=== PATIENT | male | born 1975 | race Hispanic/Latino ===

== ENCOUNTER 2018-07-06 22:28 | Emergency (ER) | payer OTHER ==
[2018-07-06] MEDS ORDERED: KETOROLAC TROMETHAMINE 60 MG/2 ML VIAL ONE (23:11)
[2018-07-06] MEDS ORDERED: CYCLOBENZAPRINE HCL 10 MG TABLET ONE (23:11)
== END 2018-07-06 23:40 | disposition home or self-care (01) ==
LOC: EDH 22:28
DX: M62.830 Muscle spasm of back (principal); M54.5 Low back pain; F31.9 Bipolar disorder, unspecified; Z72.0 Tobacco use; Z79.899 Other long term (current) drug therapy
CPT/HCPCS: 96372; 99283; J1885

== ENCOUNTER 2022-12-26 18:57 | Emergency (ER) | payer OTHER ==
[~2022-12-26] VITALS: Ht 175.3 cm; Wt 70.8 kg
[2022-12-26 19:06] VITALS: BP 103/61; PULSE 73; RESP 16; O2SAT 100
== END 2022-12-26 22:19 | disposition left against medical advice (07) ==
LOC: EDH 18:57
DX: F07.81 Postconcussional syndrome (principal); Z53.21 Procedure and treatment not carried out due to patient leaving prior to being seen by health care provider
CPT/HCPCS: 99281